=== PATIENT | female | born 1950 | race Caucasian/White ===

== ENCOUNTER 2019-03-30 09:36 | Observation (INO) | payer MEDICARE ==
[2019-03-29 08:45] VITALS: BMI 30.4
[2019-03-30] MEDS ORDERED: Sodium Chloride 0.9% 100 ML ONE (10:22)
[2019-03-30] MEDS ORDERED: Tranexamic Acid 1,000 MG/10 ML VIAL ONE (10:22)
[2019-03-30] MEDS ORDERED: Midazolam HCl 2 mg/2 ml Vial ONE (10:26)
[2019-03-30] MEDS ORDERED: Fentanyl 100 MCG/2 ML VIAL ONE (10:26)
[2019-03-30] MEDS ORDERED: Vancomycin HCl 1.5 GM in Sodium Chloride 0.9% 250 ML 300 ML IVPB SCH ×2 (10:30→23:00)
[2019-03-30 10:38] LABS: Bilirubin Negative (Negative); Blood, Urine Negative (Negative); Glucose, Urine (Dipstick) Negative (Negative); Leukocyte Negative (Negative); Nitrite Negative (Negative); Protein, Urine (Dipstick) 30 mg/dL (Neg-Trace); Urobilinogen 0.2 mg/dL (Less than 2)
[2019-03-30 10:45] LABS: #Eosinphils 0.2 thou/uL (0.0-0.7); #Lymphocytes 1.1 thou/uL (1.20-3.40); #Monocytes 0.8 thou/uL (0.11-0.59); #Neutrophils 7.9 thou/uL (1.40-6.50); %Basophils 0.5 % (0.0-1.0); %Eosinophils 1.6 % (0.0-10.0); %Lymphocytes 10.6 % (21.0-51.0); %Monocytes 7.9 % (0.0-10.0); %Neutrophils 79.4 % (42.0-75.0); Hemoglobin 12.6 g/dL (12.0-16.0); Mean Corpuscular HGB CONC 33.4 g/dL (32.0-36.0); Mean Corpuscular Hemoglobin 32.9 pg (27.0-31.0); Mean Corpuscular Volume 98.6 fL (78.0-98.0); Mean Platelet Volume 6.5 fL (7.4-10.4); Platelet Count 355 thou/uL (130-400); RBC Distribution Width 12.3 % (11.5-14.5); Red Blood Cell (RBC) Count 3.83 mill/uL (4.20-5.40)
[2019-03-30 10:46] LABS: Clarity Clear (Clear)
[2019-03-30] MEDS ORDERED: traMADol HCl 50 MG TAB PO PRN ×2 (10:58)
[2019-03-30] MEDS ORDERED: Ondansetron PF 4 MG/2 ML Vial IVP PRN (10:58)
[2019-03-30] MEDS ORDERED: HYDROcodone/Acetaminophen 10/325 mg Tablet PO PRN (10:58)
[2019-03-30] MEDS ORDERED: Promethazine HCl 25 MG/ML VIAL IM PRN ×2 (10:58→14:25)
[2019-03-30] MEDS ORDERED: Ropivacaine 0.2% 550 ML 550 ML NERVE BLCK SCH (10:58)
[2019-03-30] MEDS ORDERED: Zolpidem Tartrate 5 MG TAB PO PRN (10:58)
[2019-03-30] MEDS ORDERED: Fentanyl 100 MCG/2 ML VIAL IV PRN (10:59)
[2019-03-30 11:00] LABS: Bacteria/HPF None Seen HPF (None Seen); RBC/HPF None Seen HPF (0-3); Squamous Epithelial 0-3 HPF (0-3); WBC/HPF None Seen HPF (0-3)
[2019-03-30] MEDS ORDERED: PHENYLEPHRINE-NS 100 MCG/ML 10 ML SYRINGE ONE (13:37)
[2019-03-30] MEDS ORDERED: Glycopyrrolate 0.2 MG/ML 5 ML SYRINGE ONE (13:37)
[2019-03-30] MEDS ORDERED: ePHEDrine 50 MG/ML VIAL ONE (13:37)
[2019-03-30] MEDS ORDERED: Lidocaine 1% PF 5 ML VIAL ONE (13:37)
[2019-03-30] MEDS ORDERED: PROPOFOL 200 MG/20 ML VIAL ONE (13:37)
[2019-03-30] MEDS ORDERED: Ondansetron PF 4 MG/2 ML Vial ONE (13:37)
[2019-03-30] MEDS ORDERED: Rocuronium Bromide 10 MG/ML (10ML VIAL) ONE (13:37)
--- NOTE | 2019-03-30 13:59 | RAD ---
XR Humerus Rt 2 View STANDARD HISTORY: Intraoperative film. COMPARISON: None. FINDINGS: Patient is undergone open reduction and internal fixation of a humeral neck and proximal hu meral shaft fracture with plate and screws. Bony alignment appears satisfactory on the C-arm projections. IMPRESSION: Open reduction and internal fixation of humeral fracture
[2019-03-30] MEDS ORDERED: Promethazine HCl 25 MG/ML VIAL SLOW IVP PRN (14:25)
[2019-03-30] MEDS ORDERED: Ondansetron HCl/PF 4 MG/2 ML Vial IVP PRN (14:25)
[2019-03-30] MEDS ORDERED: Ropivacaine 0.2% HCl/PF (40 MG/20 ML VIAL) ONE (16:29)
[2019-03-30] MEDS ORDERED: Ropivacaine 0.5% HCl/PF (150 MG/30 ML VIAL) ONE (16:29)
[2019-03-30] MEDS ORDERED: Bisacodyl 10 MG SUPP PR PRN (16:34)
[2019-03-30] MEDS ORDERED: Methocarbamol 500 MG TAB PO PRN (16:34)
[2019-03-30] MEDS ORDERED: Milk Of Magnesia 30 ML UDCUP PO PRN (16:34)
[2019-03-30] MEDS ORDERED: Methocarbamol 1 GM/10 ML VIAL SLOW IVP PRN (16:34)
[2019-03-30] MEDS ORDERED: diphenhydrAMINE 50 MG CAP PO PRN (16:34)
[2019-03-30] MEDS ORDERED: Acetaminophen 325 MG TAB PO PRN (16:34)
[2019-03-30] MEDS: Ketorolac Tromethamine 30 MG/ML VIAL IVP SCH ×3 (16:37→23:36)
--- NOTE | 2019-03-30 17:13 | EKG ---
Test Reason : PREOP Blood Pressure : / mmHG Vent. Rate : 069 BPM Atrial Rate : 069 BPM P-R Int : 174 ms QRS Dur : 082 ms QT Int : 426 ms P-R-T Axes : 080 056 049 degrees QTc Int : 456 ms Normal sinus rhythm Cannot rule out Anterior infarct , age undetermined Abnormal ECG No previous ECGs available Confirmed by DR. Irene BUI (3) on 03/30/2019 5:13:10 PM Referred By: DIONNA Confirmed By:DR. Irene BUI
[2019-03-30] MEDS: CEFAZOLIN 2 GM in Premix Bag 1 BAG IVPB SCH (17:59)
[2019-03-30] MEDS: Dextrose 5 %-0.45 % NaCl 1,000 ML IV SCH (17:59)
[2019-03-30] MEDS: HYDROcodone/Acetaminophen 10/325 mg Tablet PO PRN (21:59)
[2019-03-30] MEDS: Famotidine 20 MG TAB PO SCH (22:00)
[2019-03-30] MEDS: Famotidine/PF 20 mg/2ml Vial SLOW IVP SCH (22:00)
[2019-03-31] MEDS: CEFAZOLIN 2 GM in Premix Bag 1 BAG IVPB SCH (02:27)
[2019-03-31] MEDS: HYDROcodone/Acetaminophen 10/325 mg Tablet PO PRN ×2 (02:29→06:41)
[2019-03-31] MEDS: Ketorolac Tromethamine 30 MG/ML VIAL IVP SCH ×2 (06:38→12:17)
[2019-03-31] MEDS: Famotidine/PF 20 mg/2ml Vial SLOW IVP SCH (08:46)
[2019-03-31] MEDS: Famotidine 20 MG TAB PO SCH (09:02)
--- NOTE | 2019-03-31 09:19 | OP ---
DATE OF PROCEDURE: PREOPERATIVE DIAGNOSES: Right two-part proximal humerus fracture, history of previous fracture with nonoperative management. POSTOPERATIVE DIAGNOSES: Right two-part proximal humerus fracture, history of previous fracture with nonoperative management. PROCEDURE PERFORMED: Open reduction and internal fixation of right proximal humerus, two-part humerus fracture. [employer]IVER: Jorge Saravia PA-C. ANESTHESIOLOGIST: Dr. Stef Barillas. ANESTHESIA: The patient received general endotracheal intubation with interscalene block. ESTIMATED BLOOD LOSS: 250 mL. TOURNIQUET TIME: None. IMPLANTS: Synthes 3.5 3-hole proximal humerus plate with two 3.5 cortical screws, one 3.5 locking screw in the shaft and 7 total 3.5 screws, 6 into the proximal segment, 1 distally. COMPLICATIONS: None. HISTORY OF PRESENT ILLNESS: Ms. Prieto is a 69-year-old female presented to my clinic with a right proximal humerus fracture. The patient had been treated nonoperatively for a previous proximal humerus fracture back in 2010. The patient had a valgus impacted proximal humerus fracture previously. The patient resolved. She had been treated nonoperatively. The patient had a ground level fall, smoker, right-hand dominant, retired. I discussed with the patient that proximal humerus fracture was a difficult fracture, it is a surgical neck fracture in varus position. I discussed with her both operative and nonoperative interventions. I actually recommended nonoperative intervention would decrease her risk of any complications if she has some limited function afterward. I discussed risks and benefits of open reduction and internal fixation to include malunion, nonunion, inability to heal , continued pain despite surgical intervention, infection, need for further surgeries, loss of life or limb, need for revision to reverse shoulder arthroplasty. I discussed potentially performing a reverse shoulder arthroplasty if we did not have a stable cuff, tuberosities. The patient understood these risks and benefits and elected to proceed with open reduction and internal fixation versus reverse shoulder arthroplasty of right proximal humerus fracture. DESCRIPTION OF PROCEDURE: After time-out was performed, the patient's right upper extremity was prepped and draped in sterile fashion. She was placed in a beach chair position. Deltopectoral incision was made, came down. There was scarring under the deltoid as well as conjoint. The vein was taken and ligated. We washed, came down, found the shaft. We were able to find the scar plane of the conjoint, came down on the subscapularis. I put #2 Ethibond in the supraspinatus, infraspinatus, and in the subscapularis to help postop control of the humeral head. We after cleaning off the lateral aspect found the biceps which was scarred into the remnant tissue. We created a plane to place our plate which was a 3-hole plate. It was only two-part, no distal comminution. We placed the plate on the shaft. We had to readjust height and variability, we used the infraspinatus rotator cuff to help with our varus-valgus position, pinned into place, placed 2 screws then had to readjust and placed 2 more screws and distally pulling the plate on the shaft, we had good on AP and lateral radiographs and felt like we were on the bone well as well as down the center of the shaft. We reduced the bone in internal rotation, humeral head was retroverted and in varus, pulled on the cuff to help with repositioning our plate into place, placed K-wires, we had to readjust retroversion position we liked our cortical alignment. We then started placing locking screws, placing a total of 2 kickstand screws to help with the varus position, ensured we tapped the cortex, did not try to pass through. We ensured on the radiographs. We saw the screws were out. They were not through the bone. We could not feel crepitus with range of motion for possible screw penetration. We took our final pictures, completed, and AP and lateral radiographs showed that we had good overall alignment and position of the screws. We then washed, we had taken #1 Ethibond, we sewed through the plate with the subscapularis and the supraspinatus to help with positioning of the plate in the shoulder. We tied this off vein. We closed the deltopectoral interval with 0 Vicryl, closed subcu with 2-0 and skin with omar. The patient will be placed in a sling. Postoperatively, she had about 30-40 degrees of external rotation. I do not know what she had after her previous fracture, elevated to see if she is able to come overhead approximately 160 degrees without difficulty. We will keep her overnight for observation and discharge her home tomorrow in a.m. Job ID: [id number] [facility]
[2019-03-31 11:24] VITALS: BP 116/68; TEMP 97.8
[2019-03-31] MEDS: Dextrose 5 %-0.45 % NaCl 1,000 ML IV SCH (12:17)
== END 2019-03-31 13:10 | disposition home or self-care (01) ==
LOC: SDC 09:36 → INTOOBSV 15:55 → SURG B 15:55
PROVIDERS: ADMIT Orthopaedic Surgery; ATTEND Orthopaedic Surgery
PROC: 0PSC04Z Reposition Right Humeral Head with Internal Fixation Device, Open Approach (ICD-10-PCS; principal; 2019-03-30)
PROC: 3E0T3BZ Introduction of Anesthetic Agent into Peripheral Nerves and Plexi, Percutaneous Approach (ICD-10-PCS; 2019-03-30)
DX: S42.221A 2-part displaced fracture of surgical neck of right humerus, initial encounter for closed fracture (principal); S42.301A Unspecified fracture of shaft of humerus, right arm, initial encounter for closed fracture; I10 Essential (primary) hypertension; F17.200 Nicotine dependence, unspecified, uncomplicated; G89.18 Other acute postprocedural pain; W01.0XXA Fall on same level from slipping, tripping and stumbling without subsequent striking against object, initial encounter
CPT/HCPCS: 23615; 64416; 73060; 76000; 81001; 85025; 93005; 96374; 96375; 97116; 97139 ×3; 97535; A4306; C1713 ×3; G0378 ×2; 93010; J0690; J1885; J2250; J2795; J3010; J3370; J3490; J7050